=== PATIENT | male | born 1970 | race Caucasian/White ===

== ENCOUNTER → 2018-05-08 | Outpatient (CLI) | payer OTHER | LOC: CAT 14:13 | DX: Z13.6 Encounter for screening for cardiovascular disorders (principal); E78.00 Pure hypercholesterolemia, unspecified; I25.10 Atherosclerotic heart disease of native coronary artery without angina pectoris ==

== ENCOUNTER → 2018-05-14 | Outpatient (CLI) | payer OTHER ==
--- NOTE | 2018-05-14 17:39 | EXE ---
[facility] [place] [address] STRESS ECHOCARDIOGRAM Name: DUY TARIQ Room #: REG [place]#: [id number] ������������� Admission: 05/14/18 ������������� Attend Phys: Rudy Marte, Discharge: ��� ������������� ��� Date of : 68 Date of Service: 05/14/18 1739 �� Report #: [id number] �������� ��������������������������������������������[id number] THIS REPORT FOR: //name// APPROVED REPORT Study performed: 05/14/2018 11:35:31 Exam: Stress Echocardiogram Indication: Chest pain Patient Location: Out-Patient Stress Nurse: Eunice Borges RN Room #: Echo lab 2 Status: routine Ht: 5 ft 8 in HR: 71 bpm BP: 124/82 mmHg Rhythm: NSR Medical History Medical History: HTN Cardiac Risk Factors: HTN, Smoking Exercise History: Physically active Procedure The patient underwent an Exercise Stress Test using the Simba Protocol. Blood pressure, heart rate, and EKG were monitored. An Echocardiogram was performed by systems technician in four stages in quad fashion. At peak stress, four selected images were obtained and placed side by side with resting images for comparison. Stress Test Details Stress Test: Exercise stress testing was performed using a Simba protocol. HR Resting HR: 71 bpm Max Heart Rate (APMHR): 172 bpm Max HR Achieved: 173 bpm Target HR (85% APMHR): 146 bpm % of APMHR: 100 Recovery HR: 112 bpm HR response to stress: Normal HR response to stress BP Resting BP: 124/82 mmHg Max BP: 184/82 mmHg Recovery BP: 160/82 mmHg BP response to stress: Normal blood pressure response to [facility] [address] [place] [address] STRESS ECHOCARDIOGRAM Name: DUY TARIQ [id number] ������������� Admission: 05/14/18 ������������� Attend Phys: Rudy Marte, Discharge: ��� ������������� ��� Date of : 68 Date of Service: 05/14/18 173 �� Report #: [id number] �������� ��������������������������������������������[id number] stress. ECG Clinical Reason for Termination: Maximal effort Exercise duration: 12 min sec Highest Stage Achieved: Stage 4: 4.2 mph at 16% grade. Exercise capacity: 13.7 METs Overall Exercise Capacity for Age: Good Pre-Stress Echo The resting Echocardiogram showed normal left ventricular contractility with an estimated Ejection Fraction of about >55%. Post-Stress Echo The stress Echocardiogram showed normal left ventricular contractility with an estimated Ejection Fraction of about >70%. Clinical Normal augmentation of myocardial wall segments using a 17 segment model. Conclusion Clinical Response: Non-ischemic Exercise Capacity: Average Stress ECG Response: Non-ischemic Stress Echo Images: Non-ischemic No prior study available for comparison. Other Information Study Quality: Good ��������������������������������������������� <ELECTRONICALLY SIGNED> ���������������������������������������� By: Rudy Marte MD, [facility] ��������������������������������������������� 05/14/18 1739 [id number] Rudy Marte MD, FACC /INF
== END ==
LOC: CV 11:32 → ULTRA 11:32
DX: I65.23 Occlusion and stenosis of bilateral carotid arteries (principal); R07.9 Chest pain, unspecified; I10 Essential (primary) hypertension